=== PATIENT | female | born 1950 | race Caucasian/White ===

== ENCOUNTER 2019-02-27 07:00 | Day surgery (SDC) | payer MEDICARE ==
[~2019-02-27 07:00] MED LIST: Lidocaine 2% 5 ML SDV ONE; Midazolam 1 MG/ML 2 ML SDV ONE; Propofol 200 MG/20 ML SDV ONE; ePHEDrine 50 MG/ML SDV ONE; fentaNYL 250 MCG/5 ML SDV ONE
--- NOTE | 2019-02-27 07:03 | PCM.PREANE ---
Preanesthetic Assessment - Anesthesia/Transfusion/Family Hx Anesthesia History: Prior Anesthesia Reaction Family History of Anesthesia Reaction: No Transfusion History: No Prior Transfusion(s) Intubation History: Unknown - Review of Systems General: No Symptoms Pulmonary: No Symptoms Cardiovascular: No Symptoms Gastrointestinal: No Symptoms Neurological: No Symptoms Other: Reports: None - Physical Assessment Height: 1.63 m Weight: 64.864 kg ASA Class: 1 Mental Status: Alert & Oriented x3 Airway Class: Mallampati = 1 Dentition: Reports: Normal Dentition Thyro-Mental Finger Breadths: 3 Mouth Opening Finger Breadths: 3 ROM/Head Extension: Full Lungs: Clear to Auscultation, Normal Respiratory Effort Cardiovascular: Regular Rate, Regular Rhythm - Allergies Allergies/Adverse Reactions: Allergies Allergy/AdvReac Type Severity Reaction Status Date / Time Latex, Natural Rubber Allergy Rash Verified 02/26/19 16:57 margarita Allergy Airway Verified 02/26/19 16:56 Tightness pistachio nut Allergy Airway Verified 02/26/19 16:56 Tightness - Blood Blood Available: No - Anesthesia Plan Pre-Op Medication Ordered: None - Acknowledgements Anesthesia Type Planned: General Anesthesia Pt an Appropriate Candidate for the Planned Anesthesia: Yes Alternatives and Risks of Anesthesia Discussed w Pt/Guardian: Yes Pt/Guardian Understands and Agrees with Anesthesia Plan: Yes PreAnesthesia Questionnaire HEENT History: Reports: Other (See Below) Other HEENT History: wears glasses Cardiovascular History: Reports: Heart Murmur Other Cardiovascular History: was told many years ago that she had a "slight" murmur Gastrointestinal History: Reports: None Genitourinary History: Reports: Renal Calculus 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: Musculoskeletal History: Reports: Arthritis Neurological History: Reports: Concussion, Other (See Below) Other Neuro History: hx of motion sickness - Past Surgical History HEENT Surgical History: Reports: Tonsillectomy GI Surgical History: Reports: Appendectomy Female Surgical History: Reports: Lithotripsy/ESWL - SUBSTANCE USE Smoking Status *Q: Never Smoker Recreational Drug Use History: No - HOME MEDS Home Medications: Home Meds Aspirin [Adult Low Dose Aspirin EC] 81 mg PO DAILY 02/26/19 [History] Essential Oils 1 cap PO DAILY 02/26/19 [History] - CURRENT (IN HOUSE) MEDS Current Meds: Current Medications Discontinued Medications Ephedrine Sulfate (Ephedrine Sulfate) Confirm Administered Dose 50 mg .ROUTE .STK-MED ONE Stop: 02/27/19 06:52 Fentanyl (Sublimaze) Confirm Administered Dose 250 mcg .ROUTE .STK-MED ONE Stop: 02/27/19 06:52 Lidocaine (Xylocaine-Mpf 2%) Confirm Administered Dose 5 ml .ROUTE .STK-MED ONE Stop: 02/27/19 06:52 Midazolam HCl (Versed 1 Mg/Ml) Confirm Administered Dose 2 mg .ROUTE .STK-MED ONE Stop: 02/27/19 06:52 Propofol (Diprivan 20 Ml) Confirm Administered Dose 200 mg .ROUTE .STK-MED ONE Stop: 02/27/19 06:51
[2019-02-27] MEDS ORDERED: Lactated Ringers 1,000 ML IV SCH (09:00)
--- NOTE | 2019-02-27 09:23 | PCM.OPNOTE ---
- General Post-Op/Procedure Note Date of Surgery/Procedure: 02/27/19 Operative Procedure(s): operative hysteroscopy, polypectomy, fractional D&C Findings: 1 cm polyp anterior lower uterine segment, otherwise, smooth atrophic endometrium. Uterus mid position, sounds to 7 cm Pre Op Diagnosis: Postmenopausal bleeding. Post-Op Diagnosis: Same and uterine polyp Anesthesia Technique: General LMA Primary Surgeon: Kristy Hoover Anesthesia Provider: Galen Reardon Pathology: endometrial polyp. endometrial curettings, cervical curettings. EBL in mLs: 10 Drain/Tube Comments:: hysteroscopic deficit 185 ml Complications: None Known Condition: Good Free Text/Narrative:: Intake & Output 02/26/19 02/27/19 02/27/19 22:59 06:59 14:59 Intake Total 300 Balance 300
--- NOTE | 2019-02-27 11:46 | OR ---
SURGEON: Kristy Hoover M.D. DATE OF PROCEDURE: 02/27/2019 PREOPERATIVE DIAGNOSIS: Postmenopausal bleeding. POSTOPERATIVE DIAGNOSES: Postmenopausal bleeding and endometrial polyp. PRIMARY SURGEON: Kristy Hoover MD. ANESTHESIA: General LMA. ESTIMATED BLOOD LOSS: 10 mL. FINDINGS: Uterus mid position, sounds to 8 cm. Anterior lower uterine segment, 1 cm isolated polyp. Otherwise, smooth, homogeneous, postmenopausal atrophic endometrium. No other lesions noted. PROCEDURES: Hysteroscopic polypectomy and fractional dilation and curettage. Hysteroscopic deficit was 185 mL. COMPLICATIONS: None known. DISPOSITION: Stable to recovery. PATHOLOGY SPECIMENS: Endometrial polyp, uterine curettings of the endometrium, and endocervical curettings. BRIEF HISTORY: This is a 68-year-old female. She presents with a day of postmenopausal bleeding. Ultrasound was performed. There was noted to be fluid within the uterine cavity as well as a lesion in the anterior lower uterine segment. Therefore, I recommended proceeding with a hysteroscopic evaluation with possible polypectomy, possible myomectomy, possible directed biopsy, and fractional D and C with risks discussed including bleeding, infection, uterine perforation with injury to surrounding organs, risk of thromboembolic event, and risk of anesthesia. Understanding all these risks, she does desire to proceed. DESCRIPTION OF PROCEDURE: With the patient in dorsal lithotomy position, under adequate LMA analgesia, the perineum and vagina were prepped with Betadine and draped in usual fashion for vaginal surgery. SCDs were in place, and she had voided prior to coming to the OR and an appropriate time-out was held. Bimanual examination revealed findings as noted above. Speculum was placed in the vagina. The anterior lip of the cervix was grasped with an Allis clamp. The cervix was dilated to 6 mm Hegar dilator. The 5 mm hysteroscope for the MyoSure was utilized and there was excellent visualization of the uterine cavity. Bilateral tubal ostia were visualized. Overall, the endometrium was thin, homogenous, atrophic in appearance. There was a polyp in the anterior lower uterine segment, approximately 1 cm in size. This was removed utilizing the MyoSure. The hysteroscope was then removed. Sharp curettage of the endocervix was performed, collecting the tissue with Cytobrush, and minimal tissue was obtained. Sharp curettage of the endometrium was performed. Again, minimal tissue was obtained as it was primarily atrophic. All the instruments removed from the vagina. Final sponge, needle, and instrument counts were reported as correct. There were no known complications. The patient was transferred to recovery in good condition. HELEN FERRER /[id number]
== END 2019-02-27 10:00 | disposition home or self-care (01) ==
LOC: MW.SDS 07:00
PROVIDERS: ATTEND Obstetrics & Gynecology
DX: N84.0 Polyp of corpus uteri (principal); Z91.018 Allergy to other foods; Z91.040 Latex allergy status; Z79.82 Long term (current) use of aspirin; Z79.899 Other long term (current) drug therapy
CPT/HCPCS: 58558; J2001; J2250; J2704; J3010; J7120; 88305